=== PATIENT | male | born 1955 | race Caucasian/White ===

== ENCOUNTER 2024-06-21 09:44 | Emergency (ER) | payer MEDICARE, OTHER ==
[~2024-06-21] VITALS: Ht 180.3 cm; Wt 105.2 kg
[2024-06-21] MEDS ORDERED: IBUPROFEN 800 MG TABLET ONE (10:41)
[2024-06-21] MEDS ORDERED: TDAP DIPH,PERTUSS,TET VAC/PF 0.5 ML DISP.SYRIN IM ONE ×2 (10:43)
[2024-06-21] MEDS: IBUPROFEN 800 MG TABLET PO ONE (10:49)
[2024-06-21] MEDS: TDAP DIPH,PERTUSS,TET VAC/PF 0.5 ML DISP.SYRIN IM ONE (10:50)
[2024-06-21] MEDS ORDERED: ACET1TAB23 PO (11:28)
[2024-06-21] MEDS: NEOMY/BACITRA/POLYMYXIN B OINT UD PACKET TP ONE (11:30)
[2024-06-21 12:56] VITALS: BP 142/81; TEMP 98.2; O2SAT 98
[2024-06-21] MEDS ORDERED: NEOMY/BACITRA/POLYMYXIN B OINT UD PACKET TP ONE (12:56)
== END 2024-06-21 12:57 | disposition home or self-care (01) ==
LOC: ER 09:44
DX: S40.011A Contusion of right shoulder, initial encounter (principal); S00.81XA Abrasion of other part of head, initial encounter; R51.9 Headache, unspecified; Z79.1 Long term (current) use of non-steroidal anti-inflammatories (NSAID); W01.0XXA Fall on same level from slipping, tripping and stumbling without subsequent striking against object, initial encounter; Y93.89 Activity, other specified; Y92.89 Other specified places as the place of occurrence of the external cause; Y99.8 Other external cause status
CPT/HCPCS: 70450; 70486; 72125; 73030; 90715; A4606; A4663